=== PATIENT | female | born 1960 | race Hispanic/Latino ===

== ENCOUNTER 2020-06-04 10:59 | Emergency (ER) | payer OTHER ==
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
[2020-06-04 13:59] VITALS: BP 170/88
== END 2020-06-04 13:59 | disposition home or self-care (01) ==
LOC: ED 10:59
DX: S13.4XXA Sprain of ligaments of cervical spine, initial encounter (principal); S00.03XA Contusion of scalp, initial encounter; Z79.899 Other long term (current) drug therapy; Z88.8 Allergy status to other drugs, medicaments and biological substances; V49.49XA Driver injured in collision with other motor vehicles in traffic accident, initial encounter; Y93.89 Activity, other specified; Y92.488 Other paved roadways as the place of occurrence of the external cause; Y99.8 Other external cause status
CPT/HCPCS: 70450; 72125; 99283

== ENCOUNTER 2021-08-10 15:25 | Emergency (ER) | payer SELFPAY ==
[2021-08-10 17:33] VITALS: BP 144/82
[2021-08-10] MEDS ORDERED: ALBUTEROL 2.5 MG/3 ML NEBU IH ONE (18:54)
[2021-08-10] MEDS ORDERED: BENZONATATE 100 MG CAP PO ONE (18:54)
[2021-08-10] MEDS ORDERED: ACETAMINOPHEN 325 MG TAB PO ONE (18:54)
[2021-08-10] MEDS ORDERED: ONDANSETRON 4 MG ODT TAB PO ONE (18:55)
--- NOTE | 2021-08-10 18:55 | Emergency Department Report ---
ED General Adult HPI - General Chief complaint: Fever Stated complaint: CANT BREATHE PUI?: Yes Time Seen by Provider: 08/10/21 18:33 Source: patient, RN notes reviewed Mode of arrival: Ambulatory Limitations: No Limitations - History of Present Illness Initial comments: The patient is a 61-year-old female. She is a chronic tobacco smoker, she is COVID-19 vaccinated, but she has not received the COVID-19 booster. She presents to the ER today with a complaint of 1 week of cough, shortness of breath, mucus production, body aches, malaise and fatigue. No loss of taste or smell. No urinary symptoms. Positive sore throat. Had an outpatient Covid test today, but she states the results are not quite available. She has been taking Naprosyn at home for pain. Symptoms present for 1 week. She is not flu vaccinated. -: Gradual, days(s) Location: head, back, left, right, upper extremity, lower extremity Quality: aching Consistency: constant Improves with: rest Worsens with: movement - Related Data Previous Rx's Medication Instructions Recorded Last Taken Type Acetaminophen [Non-Aspirin Extra 500 mg PO Q6HR PRN #30 tablet 08/10/21 Unknown Rx Strength] Albuterol Sulfate [Proair 90 mcg IH Q4HR PRN #2 aer.pow.ba 08/10/21 Unknown Rx Respiclick] Amoxicillin [Trimox CAP] 1,000 mg PO Q8H #28 capsule 08/10/21 Unknown Rx Azithromycin [Zithromax TAB] 250 mg PO QDAY #4 tablet 08/10/21 Unknown Rx Nicotine Polacrilex [Nicotine Gum] 4 mg BC PRN #1 pack 08/10/21 Unknown Rx Ondansetron [Zofran Odt] 4 mg PO Q8HR PRN #20 tab.rapdis 08/10/21 Unknown Rx Allergies Allergy/AdvReac Type Severity Reaction Status Date / Time ibuprofen [From Motrin] Allergy Anaphylaxis Verified 08/10/21 17:33 ED Review of Systems ROS: Stated complaint: CANT BREATHE Other details as noted in HPI Constitutional: fever, malaise, weakness Eyes: denies: eye discharge ENT: congestion Respiratory: cough, shortness of breath Cardiovascular: denies: chest pain Gastrointestinal: nausea. denies: abdominal pain Genitourinary: denies: dysuria Musculoskeletal: back pain, arthralgia, myalgia Neurological: weakness ED Past Medical Hx - Past Medical History Previous Medical History?: No - Medications Home Medications: Home Medications Medication Instructions Recorded Confirmed Last Taken Type Acetaminophen [Non-Aspirin Extra 500 mg PO Q6HR PRN #30 tablet 08/10/21 Unknown Rx Strength] Albuterol Sulfate [Proair 90 mcg IH Q4HR PRN #2 aer.pow.ba 08/10/21 Unknown Rx Respiclick] Amoxicillin [Trimox CAP] 1,000 mg PO Q8H #28 capsule 08/10/21 Unknown Rx Azithromycin [Zithromax TAB] 250 mg PO QDAY #4 tablet 08/10/21 Unknown Rx Nicotine Polacrilex [Nicotine Gum] 4 mg BC PRN #1 pack 08/10/21 Unknown Rx Ondansetron [Zofran Odt] 4 mg PO Q8HR PRN #20 tab.rapdis 08/10/21 Unknown Rx ED Physical Exam - General Limitations: No Limitations General appearance: alert, in no apparent distress - Head Head exam: Present: atraumatic, normocephalic - Eye Eye exam: Present: normal appearance, EOMI. Absent: nystagmus - ENT ENT exam: Present: normal exam, normal orophraynx, mucous membranes moist, normal external ear exam - Neck Neck exam: Present: normal inspection, full ROM. Absent: tenderness, meningismus - Respiratory Respiratory exam: Present: normal lung sounds bilaterally. Absent: respiratory distress, wheezes, rales, rhonchi, stridor, decreased breath sounds - Cardiovascular Cardiovascular Exam: Present: normal rhythm, tachycardia, normal heart sounds. Absent: bradycardia, irregular rhythm, systolic murmur, diastolic murmur, rubs, gallop - GI/Abdominal GI/Abdominal exam: Present: soft. Absent: distended, tenderness, guarding, rebound, rigid, pulsatile mass - Extremities Exam Extremities exam: Present: normal inspection, full ROM, other (2+ pulses noted in the bilateral upper and lower extremities. There is no palpable cord. negative Homans sign. Muscular compartments are soft. The pelvis is stable.). Absent: pedal edema, calf tenderness - Back Exam Back exam: Present: normal inspection, full ROM. Absent: tenderness, CVA tenderness (R), CVA tenderness (L), paraspinal tenderness, vertebral tenderness - Neurological Exam Neurological exam: Present: alert, oriented X3, normal gait, other (No facial droop. Tongue midline. Extraocular movements intact bilaterally. Facial sen sation intact to light touch in V1, V2, V3 distribution bilaterally. 5 and a 5 strength in 4 extremities. Sensation intact to light touch in 4 extremities.). Absent: motor sensory deficit - Psychiatric Psychiatric exam: Present: normal affect, normal mood - Skin Skin exam: Present: warm, dry, intact, normal color. Absent: rash ED Course Vital Signs 08/10/21 08/10/21 08/10/21 17:31 19:19 19:36 Temperature 100.5 F H Pulse Rate 101 H Pulse Rate [ 108 H Bilateral] Respiratory 18 16 Rate Respiratory 18 Rate [Bilateral ] Blood Pressure 144/82 O2 Sat by Pulse 96 Oximetry - Reevaluation(s) Reevaluation #1: 08/10/21 19:34 Differential diagnosis, including but not limited to: Pneumonia, bronchitis, influenza, COVID-19 Assessment and plan: 61-year-old female presenting with acute febrile illness, 1 week, with mild community-acquired pneumonia. Patient is not hypoxic at this time. Chest x-ray reviewed by myself, right- sided infiltrate is minimal. We will treat with fluids, Tylenol, amoxicillin, and azithromycin. Given presence of tobacco use, relative lack of outpatient follow-up, check appropriate laboratory studies. Reassess. Discussed with patient. She articulates understanding. Reevaluation #2: 08/10/21 19:36 Approximately 5 minutes spent counseling patient to discontinue tobacco consumption Reevaluation #3: 08/10/21 20:39 Seen and reexamined. Feels much improved. Work of breathing resolved. No act cathy wheezing. Playing video games on his cellular phone. Laboratory studies nonactionable. Leukocytosis reviewed and appreciated. Patient reports that she is reliable to follow-up as an outpatient. Return precautions reviewed. All questions answered. Treat for community-acquired pneumonia and bronchitis ED Medical Decision Making - Lab Data Result diagrams: 08/10/21 19:40 08/10/21 19:40 Vital Signs 08/10/21 08/10/21 17:31 19:19 Temperature 100.5 F H Pulse Rate 101 H Pulse Rate [ 108 H Bilateral] Respiratory 18 Rate Respiratory 18 Rate [Bilateral ] Blood Pressure 144/82 O2 Sat by Pulse 96 Oximetry Lab Results 08/10/21 08/10/21 08/10/21 Range/Units 19:40 19:40 19:40 WBC 13.3 H (4.5-11.0) K/mm3 RBC 4.69 (3.65-5.03) M/mm3 Hgb 14.0 (10.1-14.3) gm/dl Hct 43.0 H (30.3-42.9) % MCV 92 (79-97) fl MCH 30 (28-32) pg MCHC 33 (30-34) % RDW 14.0 (13.2-15.2) % Plt Count 244 (140-440) K/mm3 Lymph % (Auto) 30.8 (13.4-35.0) % Coles % (Auto) 7.8 H (0.0-7.3) % Eos % (Auto) 2.0 (0.0-4.3) % Baso % (Auto) 0.6 (0.0-1.8) % Lymph # (Auto) 4.1 (1.2-5.4) K/mm3 Coles # (Auto) 1.0 H (0.0-0.8) K/mm3 Eos # (Auto) 0.3 (0.0-0.4) K/mm3 Baso # (Auto) 0.1 (0.0-0.1) K/mm3 Seg Neutrophils % 58.8 (40.0-70.0) % Seg Neutrophils # 7.8 H (1.8-7.7) K/mm3 Sodium 138 (137-145) mmol/L Potassium 4.2 (3.6-5.0) mmol/L Chloride 101.6 (98-107) mmol/L Carbon Dioxide 23 (22-30) mmol/L Anion Gap 18 mmol/L BUN 17 (7-17) mg/dL Creatinine 1.0 (0.6-1.2) mg/dL Estimated GFR 56 ml/min BUN/Creatinine Ratio 17 % Glucose 117 H (65-100) mg/dL Lactic Acid 1.20 (0.7-2.0) mmol/L Calcium 10.1 (8.4-10.2) mg/dL Magnesium 2.10 (1.7-2.3) mg/dL Total Bilirubin 0.30 (0.1-1.2) mg/dL AST 23 (5-40) units/L ALT 27 (7-56) units/L Alkaline Phosphatase 105 (35-129) units/L Total Creatine Kinase 110 (30-135) units/L Total Protein 7.6 (6.3-8.2) g/dL Albumin 4.3 (3.9-5) g/dL Albumin/Globulin Ratio 1.3 % - Radiology Data Radiology results: pending, report reviewed, image reviewed CHEST PA AND LATERAL VIEWS INDICATION: cough fever. COMPARISON: None. FINDINGS: Support devices: None. Heart: Within normal limits. Lungs/Pleura: There is mild airspace disease in the medial right lower lung. Left lung is clear. No pleural effusion or pneumothorax. IMPRESSION: 1. Mild right lower lobe airspace disease could be due to early pneumonia. Signer Name: Aguila Toscano MD Signed: 08/10/2021 6:21 PM Workstation Name: [id number] Critical care attestation.: If time is entered above; I have spent that time in minutes in the direct care of this critically ill patient, excluding procedure time. ED Disposition Clinical Impression: Bronchitis, Encounter for tobacco use cessation counseling Disposition: HOME / SELF CARE / HOMELESS Is pt being admited?: No Does the pt Need Aspirin: No Condition: Good Instructions: Chronic Bronchitis (ED), Acute Bronchitis, Adult Additional Instructions: Recommend that patient discontinue tobacco consumption. Please follow-up with outpatient COVID-19 test that was taken today. Patient is found to have bronchitis and probable right-sided pneumonia. Symptoms of bronchitis may take a few days to a few weeks to resolve. Discontinue tobacco consumption. Long- term complications of tobacco consumption include cancer, heart disease, stroke. Please follow-up with your primary care doctor or jewelry mechanic within the next 2 weeks. Please take the cough medication breathing medication, pain medication, nausea medication and antibiotics as directed. Please return to the emergency room right away with new pain, worsened pain, migration of pain, projectile vomiting, change in mental status, confusion, inability tolerate liquid feeds, new, worsened or different symptoms not present on the initial emergency room evaluation Dr. Yeager is a local primary care doctor. Dr. Vargas is a local jewelry mechanic. Referrals: SUSAN YEAGER MD [Staff Physician] - 3-5 Days JENISE VARGAS MD [Staff Physician] - 3-5 Days Forms: Work/School Release Form(ED)
--- NOTE | 2021-08-10 19:25 | XRay Report ---
CHEST PA AND LATERAL VIEWS INDICATION: cough fever. COMPARISON: None. FINDINGS: Support devices: None. Heart: Within normal limits. Lungs/Pleura: There is mild airspace disease in the medial right lower lung. Left lung is clear. No p leural effusion or pneumothorax. IMPRESSION: 1. Mild right lower lobe airspace disease could be due to early pneumonia. Signer Name: Aguila Toscano MD Signed: 08/10/2021 7:21 PM Workstation Name: [id number]
[2021-08-10] MEDS ORDERED: AMOXICILLIN 500 MG CAP PO ONE (19:31)
[2021-08-10] MEDS ORDERED: AZITHROMYCIN 250 MG TAB PO ONE (19:31)
[2021-08-10] MEDS ORDERED: SODIUM CHLORIDE 0.9% 1000 ML 1,000 ML IV ONE (19:32)
[2021-08-10 19:56] LABS: Basophils # (Auto) 0.1 K/mm3 (0.0-0.1); Basophils % (Auto) 0.6 % (0.0-1.8); Eosinophils # (Auto) 0.3 K/mm3 (0.0-0.4); Lymphocytes # (Auto) 4.1 K/mm3 (1.2-5.4); Lymphocytes % (Auto) 30.8 % (13.4-35.0); Mean Corpuscular HGB Conc 33 % (30-34); Mean Corpuscular Volume 92 fl (79-97); Monocytes % (Auto) 7.8 % (0.0-7.3); Platelet Count 244 K/mm3 (140-440); Red Blood Count 4.69 M/mm3 (3.65-5.03)
[2021-08-10 20:16] LABS: Albumin 4.3 g/dL (3.9-5); Calcium 10.1 mg/dL (8.4-10.2)
== END 2021-08-10 21:16 | disposition home or self-care (01) ==
LOC: ED 15:25
DX: J40 Bronchitis, not specified as acute or chronic (principal); F17.200 Nicotine dependence, unspecified, uncomplicated; Z88.6 Allergy status to analgesic agent
CPT/HCPCS: 36415; 71046; 80053; 82140; 82550; 83735; 85025; 94640; 99284; J7030; 94644; J3490; Q0162